=== PATIENT | female | born 1995 | race Caucasian/White ===

== ENCOUNTER 2024-01-13 13:06 | Emergency (ER) | payer OTHER, SELFPAY ==
[2024-01-13 13:08] VITALS: BP 120/76
--- NOTE | 2024-01-13 14:25 | ED.GENMED ---
History of Present Illness
General
Chief Complaint: Vaginal Bleeding
Source: patient
Exam Limitations: none
Time Seen by Provider: 01/13/24 13:47
Nursing documentation reviewed up to this point in time: agreed with
Travel History
Have you had any contact with someone who has COVID-19?: No
Do you have any symptoms of coronavirus? Fever > 100 degrees, chills, cough, shortness of breath, sore throat, loss of taste or smell, muscle aches, or headache?: No
History of Present Illness
History of Present Illness:
Patient is a 28-year-old female who presents to the ER for evaluation. She reports she has a history of abnormal periods her last. Her last normal menses was August 05 however on December 31 that she noticed some blood on the toilet paper when she
wiped. She has not had normal vaginal bleeding. She reports when she wears a tampon there is no blood in the tampon and when she wears a pad there is no blood on the pad but when she wipes she does notice some blood on the toilet paper. Today
however she started with pain in her right lower quadrant which radiates to her right back.
Review of Systems
Review of Systems
Allergies reviewed?: Yes
All Other Systems: ROS reviewed and negative except as documented in HPI and ROS
Constitutional: Reports no symptoms; Denies fever, fatigue or chills
EENT: Reports no symptoms
Respiratory: Reports no symptoms
Cardiac: Reports no symptoms
ABD/GI: Reports abdominal pain and nausea; Denies vomiting or diarrhea
: Reports other (blood only toilet paper with wiping )
Musculoskeletal: Reports back pain (pain rlq radiates to back )
Skin: Reports no symptoms
Hematologic/Lymphatic: Reports no symptoms
Psychiatric: Reports no symptoms
Phy Exam
General Physical Exam
General Presentation: no apparent distress
General age: appears stated age
General Skin: warm and dry
General Habitus: normal
General Mental: alert
General Hydration: appears well hydrated
Gastrointestinal Exam
Gastrointestinal Exam: non tender and soft
Neurological Exam
Neurological Exam: alert and oriented x3
[place] Coma Scale
Eye Opening: Spontaneous
Verbal Response: Oriented
Motor Response: Obeys Commands
GCS Total Score: 15
Musculoskeletal Exam
Musculoskeletal Exam: full ROM
Skin Exam
Skin Exam: normal color and warm/dry
Psychiatric Exam
Psychiatric Exam: normal mood/affect
Course
Orders/Labs/Results
Orders:
Orders
01/13/24 14:11
IV Insert/Care/Rem.- Treatment PRN
01/13/24 14:14
Test Result ONCE
01/13/24 14:28
US Pelvis W Transvag Combined Urgent
Reason For Exam: rlq pain and bleeding
01/13/24 15:00
CT Abd/Pel (IV only)-DH only Urgent
Comment:
Reason For Exam: rlq pain
0.9% Sodium Chloride 1000 ml [Nss] 1,000 ml IV BOLUS
01/13/24 15:01
Ketorolac [Toradol] 15 mg IV NOW STA
Ondansetron Injectable [Zofran] 4 mg IV NOW STA
01/13/24 15:03
Complete Blood Count/With Diff Urgent
Comprehensive Metabolic Panel Urgent
HCG, Serum Qualitative Screen Urgent
01/13/24 19:22
UA Reflex to Culture [Urinalysis Reflex To Culture] Urgent
Date Specimen was Collected: 01/13/24
Time Specimen was Collected: 19:21
Urine Microscopic Reflex Cult Urgent
Abnormal Lab Results
01/13/24 01/13/24
15:03 19:22
Hgb 10.2 L g/dL
(12.0-16.0)
Hct 32.4 L %
(37.0-47.0)
MCV 75.5 L fL
(81.0-99.0)
MCH 23.8 L pg
(27.0-31.0)
MCHC 31.5 L g/dL
(33.0-37.0)
RDW 15.9 H %
(11.5-14.5)
Creatinine 0.5 L mg/dL
(0.6-1.0)
Ur Occult Blood Reflex 3+ A
(Negative)
Urine RBC 11-15 A /HPF
(0-2)
01/13/24 15:03
01/13/24 15:03
Vital Signs
Initial and Last Documented VS:
Initial Vital Signs
Temp Pulse Resp BP Pulse Ox
97.9 F 62 18 120/76 100
01/13/24 13:08 01/13/24 13:08 01/13/24 13:08 01/13/24 13:08 01/13/24 13:08
Last Documented Vital Signs
Temp Pulse Resp BP Pulse Ox
97.9 F 63 18 103/61 99
01/13/24 13:08 01/13/24 17:30 01/13/24 17:30 01/13/24 17:27 01/13/24 17:28
MDM/Problems Addressed
Differential Diagnosis Includes:
Not limited to ovarian torsion ovarian cyst appendicitis renal colic pyelonephritis
MDM/Problems Addressed:
Patient is a 28-year-old female who presented to the ER for evaluation. Initially patient complains of a history of irregular periods and reported vaginal bleeding since December 31 however when asked she reports there is no blood in her pad and no
blood on her tampon she only visualizes blood on the toilet paper when she wipes. Today however she started with pain in the right lower quadrant which radiates to her back. She is well appearing. denies any vaginal bleeding presently.
As documented she has a history of irregular periods and her last normal period in July. She is a no miscarriages no abortions.
On exam she is tender in the right lower quad. Differential diagnoses include as documented ovarian torsion versus cyst appendicitis as patient is tender on exam versus renal colic, pyelo.
1650: unremarkable labs , mildly anemic. CAT scan shows unremarkable appendix small nonobstructing left renal calculus limited evaluation intestinal tract without oral contrast. CAT scan mentions a few right lower quadrant mesenteric lymph nodes
cannot exclude mesenteric adenitis
Ultrasound shows IUD in normal position in the endometrial canal manage small similar size peripheral position follicles of both ovaries suggestive of polycystic very disease. Patient no acute distress
Will check urine and if negative plan for discharge with gynecology follow-up. I did review findings on ultrasound(will need gynecology follow-up for possible polycystic ovarian disease). I did go over the possibility of mesenteric adenitis with
patient and discussed supportive care Motrin Tylenol.
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
*Critical Care Note
Total Time (30-74mins, 75-104mins- exclusive of procedures): Not Applicable
ED Attending Note
-
Portions of this chart may have been created with voice recognition software.� Occasional wrong word or��sound alike� substitutions may have occurred due to the inherent limitations of voice recognition software.
Discharge Plan
Departure
Patient Disposition: Home (Routine Discharge)
Date of Disposition: 01/13/24
Time of Disposition: 19:58
Patient with high blood pressure during this ER visit?: No
Condition: Fair
Covid-19: Not Applicable
Discharge Problem:
lower abdominal pain
Instructions: Abdominal Pain, Adult ED
Referrals:
Naga Finley MD [Family Provider] -
Activity Restrictions/Additional Instructions:
You may alternate between Tylenol and ibuprofen for discomfort. Follow-up with your mutual fund manager in the next several days for reevaluation of your symptoms and reevaluation of ultrasound findings including possible polycystic ovarian disease. Also
as discussed it is possibility that there is mesenteric adenitis which is inflamed lymph nodes. This does not need any treatment except for Motrin and Tylenol as needed. This is self-limiting and will go away on its own. Follow-up with your
family doctor for further reevaluation return if any worsening of symptoms.
Interventions
Interventions:
*Risk Screen - Suicide Last Done: 01/13/24 14:56
*General Assessment Last Done: 01/13/24 14:56
*Neglect/Abuse Screening Last Done: 01/13/24 14:56
ED- Fall Risk Assessment Last Done: 01/13/24 16:26
*ED COVID-19 Vaccine History Last Done: 01/13/24 14:56
*Nursing Disposition Last Done: 01/13/24 20:14
ED-Female Genitourinary Assessment Last Done: 01/13/24 16:25
Discharge Date and Time
Discharge Date/Time: 01/13/24 20:14
[2024-01-13 14:54] VITALS: BMI 30.2
[2024-01-13 14:55] VITALS: BP 127/86
[2024-01-13 14:56] VITALS: BP 127/86
[2024-01-13] MEDS: NSS 1000 IV (15:08)
[2024-01-13] MEDS: TORADOL 15 MG IV (15:08)
[2024-01-13] MEDS: ZOFRAN 4 MG IV (15:08)
[2024-01-13 15:11] LABS: % Basophils 0.5 % (0-2); % Eosinophils 2.3 % (0-6); % Immature Granulocytes 0.2 % (0-0.5); % Monocytes 8.8 % (1.7-9.3); % Neutrophils 48.2 % (42.2-75.2); Absolute Eosinophils 0.1 10^3/uL (0-0.7); Absolute Lymphocytes 2.2 10^3/uL (1.2-3.4); Absolute Monocytes 0.5 10^3/uL (0.1-0.6); Absolute Neutrophils 2.7 10^3/uL (1.4-6.5); Hematocrit 32.4 % (37.0-47.0); Hemoglobin 10.2 g/dL (12.0-16.0); Mean Corp Hgb Conc. 31.5 g/dL (33.0-37.0); Mean Corpuscular Hgb 23.8 pg (27.0-31.0); Mean Corpuscular Volume 75.5 fL (81.0-99.0); Mean Platelet Volume 9.5 fL (7.4-10.4); Nucleated Red Blood Cells % 0 %; Platelet Count 293 10^3/uL (130-400); Red Blood Cell Count 4.29 10^6/uL (4.20-5.40); Red Cell Dist. Width 15.9 % (11.5-14.5); White Blood Cell Count 5.6 10^3/uL (4.8-10.8)
[2024-01-13 15:21] LABS: HCG, Serum Qualitative Screen Negative
[2024-01-13 15:25] LABS: ALT (SGPT) 29 U/L (0-35); AST (SGOT) 29 U/L (14-36); Albumin 4.5 g/dl (3.5-5.0); Alkaline Phosphatase 68 U/L (38-126); Blood Urea Nitrogen 14 mg/dl (7-17); Calcium 9.6 mg/dl (8.4-10.2); Carbon Dioxide 27 mmol/L (22-30); Chloride 102 mmol/L (98-107); Estimated Creatinine Clearance > 125 ml/min; Glucose 94 mg/dl (70-99); Potassium 4.2 mmol/L (3.5-5.1); Sodium 137 mmol/L (135-145); Total Bilirubin 0.3 mg/dl (0.2-1.3); Total Protein 7.7 g/dl (6.3-8.2); eGFR > 60.00
[2024-01-13 17:27] VITALS: BP 103/61
[2024-01-13 19:33] LABS: Urine Albumin Negative (Neg - Trace); Urine Bilirubin Negative (Negative); Urine Character Clear (Clear); Urine Color Yellow; Urine Glucose Negative (Negative); Urine Ketone Negative (Negative); Urine Leukocyte Negative (Negative); Urine Nitrite Negative (Negative); Urine Occult Blood 3+ (Negative); Urine Urobilinogen Negative (Neg - 1+)
[2024-01-13 19:46] LABS: Urine White Cell None Seen /HPF (0-5)
== END 2024-01-13 20:14 | disposition home or self-care (01) ==
LOC: EMR 13:06
PROVIDERS: Nurse Practitioner; EMERGENCY PHYSICIAN Emergency Medicine; FAMILY PHYSICIAN Internal Medicine
DX: R10.30 Lower abdominal pain, unspecified (principal)
CPT/HCPCS: 99284; 74177; 76830; 76856; 80053; 81003; 81015; 84703; 85025; Q9967

== ENCOUNTER 2024-02-24 21:33 | Emergency (ER) | payer OTHER, SELFPAY ==
[2024-02-24 21:42] VITALS: BP 134/87
[2024-02-24 22:14] LABS: % Basophils 0.3 % (0-2); % Eosinophils 1.9 % (0-6); % Immature Granulocytes 0.4 % (0-0.5); % Lymphocytes 18.7 % (20.5-51.1); % Monocytes 5.6 % (1.7-9.3); % Neutrophils 73.1 % (42.2-75.2); Absolute Eosinophils 0.2 10^3/uL (0-0.7); Absolute Immature Granulocytes 0.1 10^3/uL (0-0.05); Absolute Lymphocytes 2.3 10^3/uL (1.2-3.4); Absolute Monocytes 0.7 10^3/uL (0.1-0.6); Absolute Neutrophils 9.1 10^3/uL (1.4-6.5); Hematocrit 30.5 % (37.0-47.0); Mean Corp Hgb Conc. 32.8 g/dL (33.0-37.0); Mean Corpuscular Volume 73.3 fL (81.0-99.0); Mean Platelet Volume 9.3 fL (7.4-10.4); Nucleated Red Blood Cells % 0 %; Platelet Count 352 10^3/uL (130-400); Red Blood Cell Count 4.16 10^6/uL (4.20-5.40); Red Cell Dist. Width 15.7 % (11.5-14.5); White Blood Cell Count 12.5 10^3/uL (4.8-10.8)
--- NOTE | 2024-02-24 22:17 | ED.GENMED ---
History of Present Illness
<KAROLYN Reis - Last Filed: 02/25/24 04:55>
General
Chief Complaint: Flank Pain
Source: patient
Exam Limitations: none
Time Seen by Provider: 02/24/24 22:03
Nursing documentation reviewed up to this point in time: agreed with
Travel History
Have you had any contact with someone who has COVID-19?: No
Do you have any symptoms of coronavirus? Fever > 100 degrees, chills, cough, shortness of breath, sore throat, loss of taste or smell, muscle aches, or headache?: Yes
Symptoms:: sore throat
History of Present Illness
History of Present Illness:
This is a 28 year old female with no significant past medical history who presents to the ER w/ c/o right flank pain x1 day. Patient reports the pain started in the early afternoon and worsened in the evening. She states the pain radiates from her
right flank to RLQ. She admits to nausea but no vomiting or diarrhea. She also admits to dysuria, but no urgency/frequency or odor. She also states she has a sore throat that started today. She reports subjective fever and chills. She has taken 3
Tylenol tablets in total in today that has provided mild relief. She also states she has a posterior headache and photophobia. She denies cough, rhinorrhea, CP, or SOB. She denies medical history of UTI, pyelonephritis, or nephrolithiasis.
Review of Systems
<KAROLYN Reis - Last Filed: 02/25/24 04:55>
Review of Systems
Allergies reviewed?: Yes
All Other Systems: Not applicable
Constitutional: Reports fever and chills
EENT: Reports sore throat
Respiratory: Reports no symptoms
Cardiac: Reports no symptoms
ABD/GI: Reports abdominal pain and nausea
: Reports dysuria and flank pain (Right sided)
Musculoskeletal: Reports no symptoms
Skin: Reports no symptoms
Neurological: Reports headache (Associate with photophobia)
Endocrine: Reports no symptoms
Hematologic/Lymphatic: Reports no symptoms
Psychiatric: Reports no symptoms
Phy Exam
<KAROLYN Reis - Last Filed: 02/25/24 04:55>
General Physical Exam
General Presentation: well appearing and mild distress
General Skin: warm and dry
General Habitus: normal
General Mental: alert
General Hydration: appears well hydrated
ENT Exam
ENT Exam: EOMI, pharynx normal, neck supple and normocephalic
Eye Exam
Eye Exam: PERRL, cornea clear and conjunctiva normal
Cardiovascular Exam
Cardiovascular Exam: regular rate/rhythm, no edema, no murmur and normal peripheral pulses
Pulmonary Exam
Pulmonary Exam: lungs clear, no respiratory distress, no rales, no crackles, no rhonchi, no stridor, no wheezing and no cough
Gastrointestinal Exam
Gastrointestinal Exam: normal bowel sounds, non tender, soft, no organomegaly, no pulsatile mass, non distended and cva tenderness (Bilateral)
Palpation: right lower quadrant: Moderate tenderness
Neurological Exam
Neurological Exam: alert, oriented x3, no motor deficits and speech normal
Musculoskeletal Exam
Musculoskeletal Exam: full ROM and no edema
Skin Exam
Skin Exam: normal color, warm/dry, no rash and no petechia
Psychiatric Exam
Psychiatric Exam: normal mood/affect
Course
<KAROLYN Reis - Last Filed: 02/25/24 04:55>
Orders/Labs/Results
Orders:
Orders
02/24/24 22:03
Urinalysis Reflex To Culture Urgent
Date Specimen was Collected: 02/25/24
Time Specimen was Collected: 00:43
02/24/24 22:09
Comprehensive Metabolic Panel Urgent
HCG, Serum Qualitative Screen Urgent
Comment: ADDED
02/24/24 22:10
Complete Blood Count/With Diff Urgent
02/24/24 22:21
Rapid Strep Group A Urgent
ELE Source: Throat/Pharynx
Specimen Description:
Date Specimen was Collected: 02/24/24
Time Specimen was Collected: 22:16
02/24/24 22:53
0.9% Sodium Chloride 1000 ml [Nss] 1,000 ml IV BOLUS
Acetaminophen [Tylenol] 1,000 mg PO NOW STA
02/24/24 23:39
HYDROmorphone [Dilaudid] 0.5 mg IV NOW STA
Ondansetron Injectable [Zofran] 4 mg IV NOW STA
02/25/24 00:38
0.9% Sodium Chloride 1000 ml [Nss] 1,000 ml IV BOLUS
02/25/24 01:27
Lactic Acid Q4H
Comment: CANCEL 2nd LACTIC ACID IF 1st LACTIC ACID IS LESS THAN 2
Procalcitonin Urgent
PCT Algorithmm Indication: Sepsis
Blood Culture Q30M
ELE Source: Blood/Venous
Specimen Description:
Blood Culture Q30M
ELE Source: Blood/Venous
Specimen Description:
Influenza A+B Rapid Molecular Urgent
ELE Source: Nasal Swab
Specimen Description:
02/25/24 02:19
CT Abd/pelvis W Iv Cont Urgent
Comment:
Reason For Exam: flank and back pain, fever'
02/25/24 02:37
Add On- LAB Urgent
Tests Added?: serum hcg
02/25/24 04:36
Amoxicillin 875 mg/Clav 125 mg [Augmentin 875 mg/125 mg] 1 tablet .ROUTE .STK-MED ONE
Ketorolac [Toradol] 15 mg .ROUTE .STK-MED ONE
02/25/24 04:41
Amoxicillin 875 mg/Clav 125 mg [Augmentin 875 mg/125 mg] 1 tablet PO NOW STA
02/25/24 04:44
Amoxicillin 875 mg/Clav 125 mg [Augmentin 875 mg/125 mg] 1 tablet PO NOW STA
02/25/24 04:50
Ketorolac [Toradol] 15 mg IV NOW STA
02/25/24 04:53
Ondansetron Injectable [Zofran] 4 mg .ROUTE .K-MED ONE
Abnormal Lab Results
02/24/24 02/24/24
22:09 22:10
WBC 12.5 H 10^3/uL
(4.8-10.8)
RBC 4.16 L 10^6/uL
(4.20-5.40)
Hgb 10.0 L g/dL
(12.0-16.0)
Hct 30.5 L %
(37.0-47.0)
MCV 73.3 L fL
(81.0-99.0)
MCH 24.0 L pg
(27.0-31.0)
MCHC 32.8 L g/dL
(33.0-37.0)
RDW 15.7 H %
(11.5-14.5)
Abs Immat Gran (auto) 0.1 H 10^3/uL
(0-0.05)
Absolute Neuts (auto) 9.1 H 10^3/uL
(1.4-6.5)
Absolute Monos (auto) 0.7 H 10^3/uL
(0.1-0.6)
Lymphocytes % 18.7 L %
(20.5-51.1)
Potassium 3.4 L mmol/L
(3.5-5.1)
Chloride 108 H mmol/L
(98-107)
Creatinine 0.4 L mg/dL
(0.6-1.0)
02/24/24 22:10
02/24/24 22:09
Vital Signs
Initial and Last Documented VS:
Initial Vital Signs
Temp Pulse Resp BP Pulse Ox
98.6 F 86 20 134/87 100
02/24/24 21:42 02/24/24 21:42 02/24/24 21:42 02/24/24 21:42 02/24/24 21:42
Last Documented Vital Signs
Temp Pulse Resp BP Pulse Ox
99.6 F 88 22 111/84 96
02/25/24 00:54 02/25/24 04:30 02/25/24 04:30 02/25/24 04:00 02/25/24 04:30
<Quincy Gonzalez, - Last Filed: 02/25/24 04:24>
Orders/Labs/Results
Orders:
Orders
02/24/24 22:03
Urinalysis Reflex To Culture Urgent
Date Specimen was Collected: 02/25/24
Time Specimen was Collected: 00:43
02/24/24 22:09
Comprehensive Metabolic Panel Urgent
HCG, Serum Qualitative Screen Urgent
Comment: ADDED
02/24/24 22:10
Complete Blood Count/With Diff Urgent
02/24/24 22:21
Rapid Strep Group A Urgent
ELE Source: Throat/Pharynx
Specimen Description:
Date Specimen was Collected: 02/24/24
Time Specimen was Collected: 22:16
02/24/24 22:53
0.9% Sodium Chloride 1000 ml [Nss] 1,000 ml IV BOLUS
Acetaminophen [Tylenol] 1,000 mg PO NOW STA
02/24/24 23:39
HYDROmorphone [Dilaudid] 0.5 mg IV NOW STA
Ondansetron Injectable [Zofran] 4 mg IV NOW STA
02/25/24 00:38
0.9% Sodium Chloride 1000 ml [Nss] 1,000 ml IV BOLUS
02/25/24 01:27
Lactic Acid Q4H
Comment: CANCEL 2nd LACTIC ACID IF 1st LACTIC ACID IS LESS THAN 2
Procalcitonin Urgent
PCT Algorithmm Indication: Sepsis
Blood Culture Q30M
ELE Source: Blood/Venous
Specimen Description:
Blood Culture Q30M
ELE Source: Blood/Venous
Specimen Description:
Influenza A+B Rapid Molecular Urgent
ELE Source: Nasal Swab
Specimen Description:
02/25/24 02:19
CT Abd/pelvis W Iv Cont Urgent
Comment:
Reason For Exam: flank and back pain, fever'
02/25/24 02:37
Add On- LAB Urgent
Tests Added?: serum hcg
02/25/24 04:36
Amoxicillin 875 mg/Clav 125 mg [Augmentin 875 mg/125 mg] 1 tablet .ROUTE .STK-MED ONE
Ketorolac [Toradol] 15 mg .ROUTE .STK-MED ONE
02/25/24 04:41
Amoxicillin 875 mg/Clav 125 mg [Augmentin 875 mg/125 mg] 1 tablet PO NOW STA
02/25/24 04:44
Amoxicillin 875 mg/Clav 125 mg [Augmentin 875 mg/125 mg] 1 tablet PO NOW STA
02/25/24 04:50
Ketorolac [Toradol] 15 mg IV NOW STA
02/25/24 04:53
Ondansetron Injectable [Zofran] 4 mg .ROUTE .STK-MED ONE
Abnormal Lab Results
02/24/24 02/24/24
22:09 22:10
WBC 12.5 H 10^3/uL
(4.8-10.8)
RBC 4.16 L 10^6/uL
(4.20-5.40)
Hgb 10.0 L g/dL
(12.0-16.0)
Hct 30.5 L %
(37.0-47.0)
MCV 73.3 L fL
(81.0-99.0)
MCH 24.0 L pg
(27.0-31.0)
MCHC 32.8 L g/dL
(33.0-37.0)
RDW 15.7 H %
(11.5-14.5)
Abs Immat Gran (auto) 0.1 H 10^3/uL
(0-0.05)
Absolute Neuts (auto) 9.1 H 10^3/uL
(1.4-6.5)
Absolute Monos (auto) 0.7 H 10^3/uL
(0.1-0.6)
Lymphocytes % 18.7 L %
(20.5-51.1)
Potassium 3.4 L mmol/L
(3.5-5.1)
Chloride 108 H mmol/L
(98-107)
Creatinine 0.4 L mg/dL
(0.6-1.0)
02/24/24 22:10
02/24/24 22:09
Vital Signs
Initial and Last Documented VS:
Initial Vital Signs
Temp Pulse Resp BP Pulse Ox
98.6 F 86 20 134/87 100
02/24/24 21:42 02/24/24 21:42 02/24/24 21:42 02/24/24 21:42 02/24/24 21:42
Last Documented Vital Signs
Temp Pulse Resp BP Pulse Ox
99.6 F 88 22 111/84 96
02/25/24 00:54 02/25/24 04:30 02/25/24 04:30 02/25/24 04:00 02/25/24 04:30
[place];KAROLYN Reis - Last Filed: 02/25/24 04:55>
MDM/Problems Addressed
Differential Diagnosis Includes:
UTI, Pyelonephritis, Nephrolithiasis, Appendicitis, Pancreatitis, Strep pharyngitis
UTI considered due to dysuria, however she also has CVA tenderness and a fever of 99.6 degree F which makes it suspicious for pyelonephritis. Nephrolithiasis also considered with flank pain. Abd/pelvis CT scan on 01/07/23 seen small nonobstructing
left renal calculus. Appendicitis and pancreatitis considered due to abdominal pain and fever but less likely. Strep pharyngitis considered due to sore throat, no cough, and fever, however less likely since no exudates seen on ENT exam. Strep Rapid
screening ordered for further evaluation. Will also obtain UA to rule out UTI/pyelonephritis. Plan to repeat abd/pelvis CT to rule out kidney stone, appendicitis, and pancreatitis.
<KAROLYN Reis - Last Filed: 02/25/24 04:55>
*Critical Care Note
Total Time (30-74mins, 75-104mins- exclusive of procedures): Not Applicable
<Quincy Gonzalez DO - Last Filed: 02/25/24 04:24>
Update Note
Update Note:
Comparison January 13, 2024
CT abdomen pelvis with IV contrast
IMPRESSION:
No acute intra-abdominal pathology. Nonobstructing left lower pole renal calculus without hydronephrosis. No pyelonephritis. No bowel obstruction or inflammation. No free air or free fluid.
Bilateral breast implants. Bilateral dependent atelectasis. Gallbladder and pancreas are unremarkable. He is noted.
ED Attending Note
<KAROLYN Reis - Last Filed: 02/25/24 04:55>
-
Portions of this chart may have been created with voice recognition software.� Occasional wrong word or��sound alike� substitutions may have occurred due to the inherent limitations of voice recognition software.
<Quincy Gonzalez DO - Last Filed: 02/25/24 04:24>
ED Attending Note
Patient seen and examined by attending physician: Yes
I performed the substantive portion of visit, reviewed & personally made and approve the management plan that is documented in note by myself or MADDY.: Yes
ED Attending Note:
This a pleasant 28-year-old female that presents with right flank pain that has been present for the last day. She states that it has been progressively worsening. She she does have nausea when the pain is at its worst but denies diarrhea or chest
pain. She does have dysuria. Patient developed a sore throat today. She took Tylenol today around 6 PM which provided her some relief. She does report having a typical headache
Vital signs are stable. Patient not hypoxic
Nursing note reviewed. I agree with nursing documentation up to this point in time.
Home Meds and allergies reviewed.
NUMBER AND COMPLEXITY OF PROBLEMS ADDRESSED AT THE ENCOUNTER
� Chronic conditions affecting care: None
� Acute Exacerbation and/or Progression of Chronic Illness: This is an acute problem
� Differential Diagnosis includes: Strep throat, kidney stone, UTI, pyelonephritis
AMOUNT AND/OR COMPLEXITY OF DATA TO BE REVIEWED AND ANALYZED
I performed an independent evaluation of the following and my interpretation is:
EKG:
CT:
X-rays:
Ultrasound:
Laboratory Studies:
Other:
Review of other/old records:
Clinical information was obtained by an independent historian:
Prescriptions/Medications Considered but not given:
Further testing considered but not performed:
RISK OF COMPLICATIONS AND/OR MORBIDITY OR MORTALITY OF PATIENT MANAGEMENT
Social determinants of health affecting care: Good Social Support
Discussion with other providers:
Escalation of care including admission/observation vs risk of discharge considered:
CRITICAL CARE NOTE:
Total Time (exclusive of procedures):
Update:
Discharge Plan
Departure
Patient Disposition: Home (Routine Discharge)
Date of Disposition: 02/25/24
Time of Disposition: 04:20
Patient with high blood pressure during this ER visit?: No
Condition: Good
Discharge Problem:
Acute streptococcal pharyngitis
Instructions: Strep Throat ED
Prescriptions:
New
amoxicillin-pot clavulanate 875-125 mg tablet
1 tab PO BID Qty: 20 0RF
Referrals:
[facility] [Outside]
[facility] [Outside]
UNKNOWN - PT DOES,NOT KNOW [Family Provider] -
Activity Restrictions/Additional Instructions:
It was a pleasure meeting you and taking part in your care. We hope for your continued healing and wellness.
Please read discharge instructions in their entirety. However, they are for general education and may not describe your exact diagnosis at discharge. Information on your ER visit and medical conditions were discussed with you along with appropriate
follow up information...
If indicated, please take your medications as instructed and indicated on discharge paperwork.
Please schedule a follow up appointment as directed. Call to schedule an appointment
Please return to the emergency department with ANY change in, persisting, or worsening of symptoms. If any of your symptoms do not improve, or persist, or become more severe within 6-12 hours, please return to the emergency department for further
care.
Please return to the emergency department if you develop a headache, neck pain/stiffness, fever greater than 100.4F, chest pain, shortness of breath, persistent nausea, vomiting, slurred speech, difficulty walking, numbness/tingling, weakness, signs
of infection or any other symptoms that are worrisome to you.
If you have any questions or concerns please do not hesitate to call the Hospital at
Interventions
Interventions:
*Risk Screen - Suicide Last Done: 02/24/24 21:42
*General Assessment Last Done: 02/24/24 21:42
*Neglect/Abuse Screening Last Done: 02/24/24 21:42
ED- Fall Risk Assessment Last Done: 02/24/24 21:42
*ED COVID-19 Vaccine History Last Done: 02/24/24 21:42
DB-Nincqh-Dvltmqqiof Assessment Last Done: 02/25/24 03:10
ED-Female Genitourinary Assessment Last Done: 02/24/24 22:24
ED- Pulmonary Assessment Last Done: 02/25/24 03:10
Discharge Date and Time
Print Language: IRISH
[2024-02-24 22:19] VITALS: BP 151/86
[2024-02-24 22:49] LABS: ALT (SGPT) 26 U/L (0-35); AST (SGOT) 30 U/L (14-36); Albumin 4.2 g/dl (3.5-5.0); Alkaline Phosphatase 76 U/L (38-126); Blood Urea Nitrogen 10 mg/dl (7-17); Calcium 8.7 mg/dl (8.4-10.2); Carbon Dioxide 22 mmol/L (22-30); Chloride 108 mmol/L (98-107); Glucose 80 mg/dl (70-99); Potassium 3.4 mmol/L (3.5-5.1); Sodium 136 mmol/L (135-145); Total Bilirubin 0.2 mg/dl (0.2-1.3); Total Protein 7.3 g/dl (6.3-8.2); eGFR > 60.00
[2024-02-24 23:00] VITALS: BP 161/98
[2024-02-24] MEDS: NSS 1000 IV (23:07)
[2024-02-24] MEDS: TYLENOL 1000 MG PO (23:07)
[2024-02-24] MEDS: DILAUDID 0.5 MG IV (23:42)
[2024-02-24] MEDS: ZOFRAN 4 MG IV (23:42)
[2024-02-25] VITALS (8 sets, daily range): BP systolic 107–119; BP diastolic 61–84
[2024-02-25] MEDS: NSS 1000 IV (00:48)
[2024-02-25 00:53] LABS: Urine Albumin Negative (Neg - Trace); Urine Bilirubin Negative (Negative); Urine Character Clear (Clear); Urine Color Yellow; Urine Glucose Negative (Negative); Urine Ketone Negative (Negative); Urine Leukocyte Negative (Negative); Urine Nitrite Negative (Negative); Urine Occult Blood Negative (Negative); Urine Urobilinogen Negative (Neg - 1+)
[2024-02-25 01:51] LABS: Lactic Acid 0.8 mmol/L (0.7-2.0)
[2024-02-25 02:09] LABS: Procalcitonin < 0.05 ng/ml (0.0-0.25)
[2024-02-25 03:09] LABS: HCG, Serum Qualitative Screen Negative
[2024-02-25] MEDS: TORADOL 15 MG IV (04:51)
[2024-02-25] MEDS: AUGMENTIN 875 MG/125 MG 1 TABLET PO (04:51)
[2024-02-25] MEDS: ZOFRAN 4 MG IV (04:57)
--- NOTE | 2024-02-25 05:36 | ED.GENMED ---
History of Present Illness
General
Chief Complaint: Flank Pain
Time Seen by Provider: 02/24/24 22:03
Travel History
Have you had any contact with someone who has COVID-19?: No
Do you have any symptoms of coronavirus? Fever > 100 degrees, chills, cough, shortness of breath, sore throat, loss of taste or smell, muscle aches, or headache?: Yes
Symptoms:: sore throat
Course
Orders/Labs/Results
Orders:
Orders
02/24/24 22:03
Urinalysis Reflex To Culture Urgent
Date Specimen was Collected: 02/25/24
Time Specimen was Collected: 00:43
02/24/24 22:09
Comprehensive Metabolic Panel Urgent
HCG, Serum Qualitative Screen Urgent
Comment: ADDED
02/24/24 22:10
Complete Blood Count/With Diff Urgent
02/24/24 22:21
Rapid Strep Group A Urgent
ELE Source: Throat/Pharynx
Specimen Description:
Date Specimen was Collected: 02/24/24
Time Specimen was Collected: 22:16
02/24/24 22:53
0.9% Sodium Chloride 1000 ml [Nss] 1,000 ml IV BOLUS
Acetaminophen [Tylenol] 1,000 mg PO NOW STA
02/24/24 23:39
HYDROmorphone [Dilaudid] 0.5 mg IV NOW STA
Ondansetron Injectable [Zofran] 4 mg IV NOW STA
02/25/24 00:38
0.9% Sodium Chloride 1000 ml [Nss] 1,000 ml IV BOLUS
02/25/24 01:27
Lactic Acid Q4H
Comment: CANCEL 2nd LACTIC ACID IF 1st LACTIC ACID IS LESS THAN 2
Procalcitonin Urgent
PCT Algorithmm Indication: Sepsis
Blood Culture Q30M
ELE Source: Blood/Venous
Specimen Description:
Blood Culture Q30M
ELE Source: Blood/Venous
Specimen Description:
Influenza A+B Rapid Molecular Urgent
ELE Source: Nasal Swab
Specimen Description:
02/25/24 02:19
CT Abd/pelvis W Iv Cont Urgent
Comment:
Reason For Exam: flank and back pain, fever'
02/25/24 02:37
Add On- LAB Urgent
Tests Added?: serum hcg
02/25/24 04:36
Amoxicillin 875 mg/Clav 125 mg [Augmentin 875 mg/125 mg] 1 tablet .ROUTE .STK-MED ONE
Ketorolac [Toradol] 15 mg .ROUTE .STK-MED ONE
02/25/24 04:41
Amoxicillin 875 mg/Clav 125 mg [Augmentin 875 mg/125 mg] 1 tablet PO NOW STA
02/25/24 04:44
Amoxicillin 875 mg/Clav 125 mg [Augmentin 875 mg/125 mg] 1 tablet PO NOW STA
02/25/24 04:50
Ketorolac [Toradol] 15 mg IV NOW STA
02/25/24 04:53
Ondansetron Injectable [Zofran] 4 mg .ROUTE .STK-MED ONE
02/25/24 04:57
Ondansetron Injectable [Zofran] 4 mg IV NOW STA
Abnormal Lab Results
02/24/24 02/24/24
22:09 22:10
WBC 12.5 H 10^3/uL
(4.8-10.8)
RBC 4.16 L 10^6/uL
(4.20-5.40)
Hgb 10.0 L g/dL
(12.0-16.0)
Hct 30.5 L %
(37.0-47.0)
MCV 73.3 L fL
(81.0-99.0)
MCH 24.0 L pg
(27.0-31.0)
MCHC 32.8 L g/dL
(33.0-37.0)
RDW 15.7 H %
(11.5-14.5)
Abs Immat Gran (auto) 0.1 H 10^3/uL
(0-0.05)
Absolute Neuts (auto) 9.1 H 10^3/uL
(1.4-6.5)
Absolute Monos (auto) 0.7 H 10^3/uL
(0.1-0.6)
Lymphocytes % 18.7 L %
(20.5-51.1)
Potassium 3.4 L mmol/L
(3.5-5.1)
Chloride 108 H mmol/L
(98-107)
Creatinine 0.4 L mg/dL
(0.6-1.0)
02/24/24 22:10
02/24/24 22:09
Vital Signs
Initial and Last Documented VS:
Initial Vital Signs
Temp Pulse Resp BP Pulse Ox
98.6 F 86 20 134/87 100
02/24/24 21:42 02/24/24 21:42 02/24/24 21:42 02/24/24 21:42 02/24/24 21:42
Last Documented Vital Signs
Temp Pulse Resp BP Pulse Ox
100.4 F H 84 17 109/77 97
02/25/24 04:50 02/25/24 04:50 02/25/24 04:50 02/25/24 05:00 02/25/24 05:00
ED Attending Note
-
Portions of this chart may have been created with voice recognition software.� Occasional wrong word or��sound alike� substitutions may have occurred due to the inherent limitations of voice recognition software.
Discharge Plan
Departure
Patient Disposition: Home (Routine Discharge)
Date of Disposition: 02/25/24
Time of Disposition: 04:20
Patient with high blood pressure during this ER visit?: No
Condition: Good
Discharge Problem:
Acute streptococcal pharyngitis
Instructions: Strep Throat ED
Prescriptions:
New
amoxicillin-pot clavulanate 875-125 mg tablet
1 tab PO BID Qty: 20 0RF
ondansetron 4 mg tablet,disintegrating
4 mg PO TID PRN (Reason: nausea and vomiting) 5 Days Qty: 15 0RF
Referrals:
[facility] [Outside]
[facility] [Outside]
UNKNOWN - PT DOES,NOT KNOW [Family Provider] -
Activity Restrictions/Additional Instructions:
It was a pleasure meeting you and taking part in your care. We hope for your continued healing and wellness.
Please read discharge instructions in their entirety. However, they are for general education and may not describe your exact diagnosis at discharge. Information on your ER visit and medical conditions were discussed with you along with appropriate
follow up information...
If indicated, please take your medications as instructed and indicated on discharge paperwork.
Please schedule a follow up appointment as directed. Call to schedule an appointment
Please return to the emergency department with ANY change in, persisting, or worsening of symptoms. If any of your symptoms do not improve, or persist, or become more severe within 6-12 hours, please return to the emergency department for further
care.
Please return to the emergency department if you develop a headache, neck pain/stiffness, fever greater than 100.4F, chest pain, shortness of breath, persistent nausea, vomiting, slurred speech, difficulty walking, numbness/tingling, weakness, signs
of infection or any other symptoms that are worrisome to you.
If you have any questions or concerns please do not hesitate to call the Hospital at
Interventions
Interventions:
*Risk Screen - Suicide Last Done: 02/24/24 21:42
*General Assessment Last Done: 02/24/24 21:42
*Neglect/Abuse Screening Last Done: 02/24/24 21:42
ED- Fall Risk Assessment Last Done: 02/24/24 21:42
*ED COVID-19 Vaccine History Last Done: 02/24/24 21:42
GC-Csorkw-Qlrmhwjhgh Assessment Last Done: 02/25/24 03:10
ED-Female Genitourinary Assessment Last Done: 02/24/24 22:24
ED- Pulmonary Assessment Last Done: 02/25/24 03:10
Discharge Date and Time
Print Language: LUX[place]
== END 2024-02-25 05:30 | disposition home or self-care (01) ==
LOC: EMR 21:33
PROVIDERS: EMERGENCY PHYSICIAN Student in an Organized Health Care Education/Training Program
DX: J02.0 Streptococcal pharyngitis (principal); R10.9 Unspecified abdominal pain; Z98.82 Breast implant status
CPT/HCPCS: 99284; 96374 ×2; 96375 ×2; 96361 ×2; 74177; 80053; 81003; 83605; 84145; 84703; 85025; 87040; 87070; 87502; 87880; Q9967

== ENCOUNTER 2024-07-28 23:37 | Emergency (ER) | payer SELFPAY ==
[2024-07-28 23:37] VITALS: BMI 30.3
[2024-07-28 23:39] VITALS: BP 147/104
[2024-07-29] VITALS: BP 137/87
--- NOTE | 2024-07-29 00:14 | ED.GENMED ---
History of Present Illness
General
Chief Complaint: Headache
Source: patient
Time Seen by Provider: 07/28/24 23:50
History of Present Illness
History of Present Illness:
29-year-old female presents complaining of headache. Patient has a history of migraines. This is a typical migraine headache but her home medication has not helped. She takes rizatriptan. She also took Tylenol today. She has some nausea but has
not vomited. No focal weakness.
Phy Exam
Physical Exam
Physical Exam:
General: Awake, Alert, Oriented X3. No acute distress.
Vitals: unremarkable
Head: Atraumatic
Eyes: Pupils equal, EOMI
Neck: Trachea midline
Lungs: Clear and equal b/l
Heart: Regular rate, no murmurs
Neuro: Cranial nerves intact, muscle strength equal bilaterally
Skin: Warm, dry, no rash
Extremities: pulses equal b/l, no edema
Course
Orders/Labs/Results
Orders:
Orders
07/29/24 00:12
0.9% Sodium Chloride 1000 ml [Nss] 1,000 ml IV BOLUS
Diphenhydramine [Benadryl] 25 mg IV NOW STA
Ketorolac [Toradol] 15 mg IV NOW STA
Prochlorperazine [Compazine] 10 mg IV NOW STA
07/29/24 00:13
Test Result ONCE
07/29/24 00:26
Basic Metabolic Panel Urgent
Complete Blood Count/No Diff Urgent
HCG, Serum Qualitative Screen Urgent
Abnormal Lab Results
07/29/24
00:26
Hgb 11.7 L g/dL
(12.0-16.0)
Hct 34.6 L %
(37.0-47.0)
RDW 14.9 H %
(11.5-14.5)
Sodium 148 H mmol/L
(135-145)
07/29/24 00:26
07/29/24 00:26
Vital Signs
Initial and Last Documented VS:
Initial Vital Signs
Temp Pulse Resp BP Pulse Ox
98.5 F 104 20 147/104 100
07/28/24 23:39 07/28/24 23:39 07/28/24 23:39 07/28/24 23:39 07/28/24 23:39
Last Documented Vital Signs
Temp Pulse Resp BP Pulse Ox
98.5 F 104 20 119/82 100
07/28/24 23:39 07/28/24 23:39 07/28/24 23:39 07/29/24 02:00 07/29/24 02:00
MDM/Problems Addressed
Differential Diagnosis Includes:
Tension headache, migraine headache
MDM/Problems Addressed:
Patient presents exacerbation of her chronic migraines. She felt better after treatment. Able for discharge home
*Pulse Oximetry
Patient hypoxic: no
*Critical Care Note
Total Time (30-74mins, 75-104mins- exclusive of procedures): Not Applicable
ED Attending Note
-
Portions of this chart may have been created with voice recognition software.� Occasional wrong word or��sound alike� substitutions may have occurred due to the inherent limitations of voice recognition software.
Discharge Plan
Departure
Patient Disposition: Home (Routine Discharge)
Date of Disposition: 07/29/24
Time of Disposition: 01:21
Patient with high blood pressure during this ER visit?: Yes
Condition: Good
Discharge Problem:
Migraine
Instructions: Migraines (DC)
Prescriptions:
No Action
amoxicillin-pot clavulanate 875-125 mg tablet
1 tab PO BID Qty: 20 0RF
ondansetron 4 mg tablet,disintegrating
4 mg PO TID PRN (Reason: nausea and vomiting) 5 Days Qty: 15 0RF
Referrals:
John Boucher MD [Family Provider] -
Interventions
Interventions:
*Risk Screen - Suicide Last Done: 07/28/24 23:39
*General Assessment Last Done: 07/28/24 23:39
*ED COVID-19 Vaccine History Last Done: 07/28/24 23:59
*Nursing Disposition Last Done: 07/29/24 02:16
ED- Neurological Assessment Last Done: 07/28/24 23:59
Discharge Date and Time
Discharge Date/Time: 07/29/24 02:18
Print Language: SPANISH
[2024-07-29] MEDS: TORADOL 15 MG IV (00:28)
[2024-07-29] MEDS: COMPAZINE 10 MG IV (00:29)
[2024-07-29] MEDS: NSS 1000 IV (00:31)
[2024-07-29] MEDS: BENADRYL 25 MG IV (00:31)
[2024-07-29 00:50] LABS: Hematocrit 34.6 % (37.0-47.0); Hemoglobin 11.7 g/dL (12.0-16.0); Mean Corp Hgb Conc. 33.8 g/dL (33.0-37.0); Mean Corpuscular Hgb 27.4 pg (27.0-31.0); Mean Platelet Volume 9.8 fL (7.4-10.4); Platelet Count 336 10^3/uL (130-400); Red Blood Cell Count 4.27 10^6/uL (4.20-5.40); Red Cell Dist. Width 14.9 % (11.5-14.5); White Blood Cell Count 5.8 10^3/uL (4.8-10.8)
[2024-07-29 01:00] VITALS: BP 108/72
[2024-07-29 01:00] LABS: HCG, Serum Qualitative Screen Negative
[2024-07-29 01:05] LABS: Blood Urea Nitrogen 8 mg/dl (7-17); Calcium 9.8 mg/dl (8.4-10.2); Carbon Dioxide 22 mmol/L (22-30); Chloride 107 mmol/L (98-107); Estimated Creatinine Clearance > 125 ml/min; Glucose 87 mg/dl (70-99); Potassium 4.4 mmol/L (3.5-5.1); Sodium 148 mmol/L (135-145); eGFR > 60.00
[2024-07-29 02:00] VITALS: BP 119/82
== END 2024-07-29 02:18 | disposition home or self-care (01) ==
LOC: EMR 23:37
PROVIDERS: EMERGENCY PHYSICIAN Emergency Medicine; FAMILY PHYSICIAN Family Medicine
DX: G43.909 Migraine, unspecified, not intractable, without status migrainosus (principal); R03.0 Elevated blood-pressure reading, without diagnosis of hypertension
CPT/HCPCS: 99284; 96374; 96375 ×2; 96361; 80048; 84703; 85027

== ENCOUNTER 2024-08-02 06:32 | Emergency (ER) | payer SELFPAY ==
[2024-08-02 06:35] VITALS: BP 136/89
[2024-08-02] MEDS: NSS 1000 IV (07:35)
[2024-08-02] MEDS: TORADOL 15 MG IV (07:35)
[2024-08-02] MEDS: BENADRYL 25 MG IV (07:36)
[2024-08-02] MEDS: COMPAZINE 10 MG IV (07:36)
[2024-08-02 07:45] LABS: % Basophils 0.4 % (0-2); % Eosinophils 0.2 % (0-6); % Immature Granulocytes 0.4 % (0-0.5); % Lymphocytes 18.5 % (20.5-51.1); % Monocytes 4.2 % (1.7-9.3); % Neutrophils 76.3 % (42.2-75.2); Absolute Monocytes 0.2 10^3/uL (0.1-0.6); Hematocrit 33.6 % (37.0-47.0); Hemoglobin 11.3 g/dL (12.0-16.0); Mean Corp Hgb Conc. 33.6 g/dL (33.0-37.0); Mean Corpuscular Hgb 27.2 pg (27.0-31.0); Mean Corpuscular Volume 80.8 fL (81.0-99.0); Mean Platelet Volume 9.4 fL (7.4-10.4); Nucleated Red Blood Cells % 0 %; Platelet Count 313 10^3/uL (130-400); Red Blood Cell Count 4.16 10^6/uL (4.20-5.40); White Blood Cell Count 5.3 10^3/uL (4.8-10.8)
--- NOTE | 2024-08-02 07:54 | ED.GENMED ---
History of Present Illness
General
Chief Complaint: Abdominal Pain
Source: patient
Exam Limitations: none
Time Seen by Provider: 08/02/24 07:08
Nursing documentation reviewed up to this point in time: agreed with
History of Present Illness
History of Present Illness:
29 y/o F with h/o migraines
does not see neurologist
uses rizatriptan when she has migraines
this headache started gradually yesterdady and she took tylenol and when it was not relieved she tried a dose of rizatriptan. pt vomited about 7 times overnight and feels nauseated.
her headache is still present; both L periorbital region and posterior head. she has no fever, chills, congestion, sob, neck pain, vision changes, numbness/tingling/weakness in arms or legs, trouble with balance
this feels slimiar to previous headaches but usually she doesn' thave vomiting.
pt was here on 07/29 for headache; received compazine/benadryl/toradol with resolution
she says she was good for afew days until yesterday
she had no head injury
Past History
Past History
ED Past Medical History: Other (migraines)
Phy Exam
Physical Exam
Physical Exam:
GENERAL: Alert , in no apparent distress
HEAD: NCAT
EYE: pupils equal and reactive, no nystagmus, minimal photophobia
NECK: Supple,full rom, nontender
ENT: o/p clr, mmm.
CARDIAC: Regular rate and rhythm . no edema
LUNGS: Clear breath sounds bilaterally, no acute respiratory distress, no wheezes/rales/rhonchi
ABDOMEN: Soft, without focal tenderness, no r/g, no cvat
NEUROLOGICAL: Alert and orientedx 4, cn intact, no facial asymmetry, 5/5 strength in UE/LE, sensation intact, romberg neg, ambulates without assistance, neg pronator drift
SKIN: Warm and dry, skin intact.
MUSCULOSKELETAL: No edema, well perfused.
PSYCH: Normal and appropriate interaction.
Course
Orders/Labs/Results
Orders:
Orders
08/02/24 07:23
0.9% Sodium Chloride 1000 ml [Nss] 1,000 ml IV BOLUS
Diphenhydramine [Benadryl] 25 mg IV NOW STA
Ketorolac [Toradol] 15 mg IV NOW STA
Prochlorperazine [Compazine] 10 mg IV NOW STA
Test Result ONCE
08/02/24 07:28
Basic Metabolic Panel Urgent
Complete Blood Count/With Diff Urgent
08/02/24 08:23
Comprehensive Metabolic Panel Urgent
HCG, Serum Qualitative Screen Urgent
Lipase Urgent
08/02/24 09:47
Dexamethasone Sod Phosphate [Decadron] 10 mg IV NOW STA
Abnormal Lab Results
08/02/24 08/02/24
07:28 08:23
RBC 4.16 L 10^6/uL
(4.20-5.40)
Hgb 11.3 L g/dL
(12.0-16.0)
Hct 33.6 L %
(37.0-47.0)
MCV 80.8 L fL
(81.0-99.0)
RDW 15.0 H %
(11.5-14.5)
Absolute Lymphs (auto) 1.0 L 10^3/uL
(1.2-3.4)
Neutrophils % 76.3 H %
(42.2-75.2)
Lymphocytes % 18.5 L %
(20.5-51.1)
Chloride 108 H mmol/L 109 H mmol/L
(98-107) (98-107)
Creatinine 0.4 L mg/dL 0.5 L mg/dL
(0.6-1.0) (0.6-1.0)
Glucose 109 H mg/dl 104 H mg/dl
(70-99) (70-99)
08/02/24 07:28
08/02/24 08:23
Vital Signs
Initial and Last Documented VS:
Initial Vital Signs
Temp Pulse Resp BP Pulse Ox
97.5 F 83 22 136/89 99
08/02/24 06:35 08/02/24 06:35 08/02/24 06:35 08/02/24 06:35 08/02/24 06:35
Last Documented Vital Signs
Temp Pulse Resp BP Pulse Ox
97.5 F 88 16 118/83 99
08/02/24 06:35 08/02/24 08:25 08/02/24 08:25 08/02/24 08:25 08/02/24 08:25
MDM/Problems Addressed
Differential Diagnosis Includes:
migraine, tension headache
MDM/Problems Addressed:
29 y/o F
with ho migraines
followed by primary care
here with recurrence of migraine yesterday gradual onset, no red flag symptoms
had a heaache a few days ago and was int he ER and had resolution with IV migraine cocktail; had painfree few days and then the pain return now this time with vomiting
photophia mild, nontoxic, normal neck exam, normal neuro exam
vitals stable
complete resolution with iv compazine, benadryl, toradol
will give dose of decadron to help with rebound
dc home
outaptient neuro recommended
*Critical Care Note
Total Time (30-74mins, 75-104mins- exclusive of procedures): Not Applicable
ED Attending Note
-
Portions of this chart may have been created with voice recognition software.� Occasional wrong word or��sound alike� substitutions may have occurred due to the inherent limitations of voice recognition software.
Discharge Plan
Departure
Patient Disposition: Home (Routine Discharge)
Date of Disposition: 08/02/24
Time of Disposition: 09:50
Patient with high blood pressure during this ER visit?: No
Covid-19: Not Applicable
Discharge Problem:
Migraine
Instructions: Migraine in adults
Prescriptions:
New
prochlorperazine maleate [Compazine] 10 mg tablet
10 mg PO BID PRN (Reason: nausea and vomiting) Qty: 4 0RF
No Action
amoxicillin-pot clavulanate 875-125 mg tablet
1 tab PO BID Qty: 20 0RF
ondansetron 4 mg tablet,disintegrating
4 mg PO TID PRN (Reason: nausea and vomiting) 5 Days Qty: 15 0RF
Referrals:
Naga Finley MD [Family Provider] - Follow up in 2-3 days
Alberto Sepulveda MD [Active] - Follow up in 1 week
Activity Restrictions/Additional Instructions:
WE GAVE YOU MIGRAINE MEDICATION TO HELP YOUR HEADACHE
YOU CAN USE TYLENOL OR MOTRIN IF YOUR HEADACHE RECURS.
DRINK FLUIDS, EAT A BLAND DIET
IF YOU HAVE VOMTING, YOU CAN TRY A DOSE OF COMPAZINE NEEDED.
RETURN FOR: SEVERE HEADACHE, CONTINUED VOMITING, ANY NEUROLOGIC SYMPTOMS OR ANY CONCERNS
IT PROBABLY WOULD BE A GOOD IDEA TO SEE A NEUROLOGIST AN OUTPATIENT
FOLLOW UP WITH YOUR DOCTOR WELL
Interventions
Interventions:
*Risk Screen - Suicide Last Done: 08/02/24 06:35
*General Assessment Last Done: 08/02/24 06:35
*Neglect/Abuse Screening Last Done: 08/02/24 06:35
ED- Fall Risk Assessment Last Done: 08/02/24 07:09
*ED COVID-19 Vaccine History Last Done: 08/02/24 06:35
QE-Gjeuwa-Bmsipprcyl Assessment Last Done: 08/02/24 07:09
Discharge Date and Time
Print Language: NIGERIAN
[2024-08-02 07:59] LABS: Blood Urea Nitrogen 8 mg/dl (7-17); Calcium 9.2 mg/dl (8.4-10.2); Carbon Dioxide 22 mmol/L (22-30); Chloride 108 mmol/L (98-107); Glucose 109 mg/dl (70-99); Sodium 145 mmol/L (135-145); eGFR > 60.00
[2024-08-02 08:25] VITALS: BP 118/83
[2024-08-02 08:44] LABS: HCG, Serum Qualitative Screen Negative
[2024-08-02 08:48] LABS: ALT (SGPT) 29 U/L (0-35); AST (SGOT) 26 U/L (14-36); Albumin 4.4 g/dl (3.5-5.0); Alkaline Phosphatase 57 U/L (38-126); Blood Urea Nitrogen 8 mg/dl (7-17); Calcium 8.8 mg/dl (8.4-10.2); Carbon Dioxide 24 mmol/L (22-30); Chloride 109 mmol/L (98-107); Glucose 104 mg/dl (70-99); Lipase 79 U/L (23-300); Potassium 3.8 mmol/L (3.5-5.1); Sodium 145 mmol/L (135-145); Total Bilirubin 0.2 mg/dl (0.2-1.3); Total Protein 7.1 g/dl (6.3-8.2); eGFR > 60.00
[2024-08-02] MEDS: DECADRON 10 MG IV (09:51)
[2024-08-02 10:00] VITALS: BP 121/78
== END 2024-08-02 10:37 | disposition home or self-care (01) ==
LOC: EMR 06:32
PROVIDERS: Physician Assistant; EMERGENCY PHYSICIAN Emergency Medicine; FAMILY PHYSICIAN Internal Medicine
DX: G43.909 Migraine, unspecified, not intractable, without status migrainosus (principal); Z79.899 Other long term (current) drug therapy
CPT/HCPCS: 99283; 96374; 96375; 96361; 80048; 80053; 83690; 84703; 85025

== ENCOUNTER 2024-08-11 21:12 | Emergency (ER) | payer SELFPAY ==
[2024-08-11 21:17] VITALS: BP 156/94
[2024-08-11 21:54] LABS: Urine Albumin Negative (Neg - Trace); Urine Bilirubin Negative (Negative); Urine Character Very Cloudy (Clear); Urine Color Yellow; Urine Glucose Negative (Negative); Urine Ketone Negative (Negative); Urine Leukocyte Trace (Negative); Urine Nitrite Negative (Negative); Urine Occult Blood Negative (Negative); Urine Urobilinogen Negative (Neg - 1+)
[2024-08-11 21:57] LABS: % Basophils 0.5 % (0-2); % Eosinophils 2.1 % (0-6); % Immature Granulocytes 0.4 % (0-0.5); % Lymphocytes 29.8 % (20.5-51.1); % Monocytes 8.7 % (1.7-9.3); % Neutrophils 58.5 % (42.2-75.2); Absolute Eosinophils 0.2 10^3/uL (0-0.7); Absolute Lymphocytes 2.3 10^3/uL (1.2-3.4); Absolute Monocytes 0.7 10^3/uL (0.1-0.6); Absolute Neutrophils 4.4 10^3/uL (1.4-6.5); Hematocrit 36.9 % (37.0-47.0); Hemoglobin 12.2 g/dL (12.0-16.0); Mean Corp Hgb Conc. 33.1 g/dL (33.0-37.0); Mean Corpuscular Hgb 27.9 pg (27.0-31.0); Mean Corpuscular Volume 84.4 fL (81.0-99.0); Mean Platelet Volume 9.3 fL (7.4-10.4); Nucleated Red Blood Cells % 0 %; Platelet Count 309 10^3/uL (130-400); Red Blood Cell Count 4.37 10^6/uL (4.20-5.40); Red Cell Dist. Width 13.8 % (11.5-14.5); White Blood Cell Count 7.6 10^3/uL (4.8-10.8)
[2024-08-11 22:00] VITALS: BP 125/76
[2024-08-11 22:07] LABS: HCG, Serum Qualitative Screen Negative
[2024-08-11 22:08] LABS: ALT (SGPT) 27 U/L (0-35); AST (SGOT) 25 U/L (14-36); Albumin 4.5 g/dl (3.5-5.0); Alkaline Phosphatase 60 U/L (38-126); Blood Urea Nitrogen 12 mg/dl (7-17); Calcium 9.7 mg/dl (8.4-10.2); Carbon Dioxide 27 mmol/L (22-30); Chloride 103 mmol/L (98-107); Glucose 84 mg/dl (70-99); Potassium 4.1 mmol/L (3.5-5.1); Sodium 141 mmol/L (135-145); Total Bilirubin 0.2 mg/dl (0.2-1.3); Total Protein 7.3 g/dl (6.3-8.2); eGFR > 60.00
[2024-08-11 22:17] LABS: Urine Amorphous Seen; Urine Squamous Cell >30 /LPF (Few)
[2024-08-11 22:18] LABS: Urine Bacteria Moderate (Negative); Urine Red Blood Cell 0-2 /HPF (0-2)
[2024-08-11 22:27] VITALS: BMI 29.5
--- NOTE | 2024-08-11 22:50 | ED.GENMED ---
History of Present Illness
<Gissel Downey PA-C - Last Filed: 08/12/24 01:58>
General
Chief Complaint: Abdominal Symptoms
Source: patient
Exam Limitations: none
Time Seen by Provider: 08/11/24 22:25
Nursing documentation reviewed up to this point in time: agreed with
History of Present Illness
History of Present Illness:
Patient is a 29 year old female presenting to the emergency department for evaluation of right pelvic discomfort. Patient states symptoms started last night middle the night waking her from sleep. She endorses a constant pain in her right pelvic
region with some radiation around to the right back. Pain does intermittently get more severe at times. She endorses associated nausea, although no vomiting. She has had a decreased appetite today. Patient did note a temp at home of 38 Celsius.
Patient denies any associated urinary symptoms. No abnormal vaginal discharge or bleeding.
Patient does have a history of an appendectomy 4 months ago.
Past History
<Gissel Downey PA-C - Last Filed: 08/12/24 01:58>
Past History
ED Past Medical History: Other (migraines)
Review of Systems
<Gissel Downey PA-C - Last Filed: 08/12/24 01:58>
Review of Systems
Allergies reviewed?: Yes
All Other Systems: ROS reviewed and negative except as documented in HPI and ROS
Phy Exam
<Gissel Downey PA-C - Last Filed: 08/12/24 01:58>
Physical Exam
Physical Exam:
Vitals: Patient's vital signs are stable. Afebrile
General: Patient is well appearing, no acute distress
Skin: Warm and dry, no rashes or lesions
Head: Normocephalic, atraumatic
Eyes: Sclera nonicteric. EOMs intact. No nystagmus.
Throat: Protecting airway
Neck: Normal ROM, no cervical spine tenderness, no meningismus
Cardiac: Regular rate and rhythm, no murmurs.
Pulm: Normal respiratory effort, no wheezes, rales, rhonchi heard on exam.
Abdomen: Abdomen soft. Mild abdominal tenderness in right lower abdomen/pelvic region. No rebound tenderness or guarding. Well-healing laparoscopic scars from prior appendectomy and section scar.
Extremities: No evidence of cyanosis or edema
Neuro: AAOx3. CN II-XII intact. No focal neurologic deficits.
Psychiatric: Normal affect.
Course
<Gissel Downey PA-C - Last Filed: 08/12/24 01:58>
Orders/Labs/Results
Orders:
Orders
08/11/24 21:20
Test Result ONCE
08/11/24 21:36
Complete Blood Count/With Diff Urgent
Comprehensive Metabolic Panel Urgent
HCG, Serum Qualitative Screen Urgent
Urinalysis Reflex To Culture Urgent
Date Specimen was Collected: 08/11/24
Time Specimen was Collected: 21:20
Urine Microscopic Reflex Cult Urgent
Urine Culture Urgent
ELE Source: U
Specimen Description:
Date Specimen was Collected: 08/11/24
Time Specimen was Collected: 21:20
08/11/24 22:53
0.9% Sodium Chloride 1000 ml [Nss] 1,000 ml IV BOLUS
Ketorolac [Toradol] 15 mg IV NOW STA
Ondansetron Injectable [Zofran] 4 mg IV NOW STA
US Kidneys [US Renal Only W/O Bladder] Urgent
Comment:
Reason For Exam: R lower abdominal/flank pain
US Pelvis Only (non-obstetric) Urgent
Comment:
Reason For Exam: R pelvic pain radiating to back, +nausea
Abnormal Lab Results
08/11/24
21:36
Hct 36.9 L %
(37.0-47.0)
Absolute Monos (auto) 0.7 H 10^3/uL
(0.1-0.6)
Leukocyte Esterase Rfl Trace A
(Negative)
Urine Bacteria (Reflex) Moderate A
(Negative)
08/11/24 21:36
08/11/24 21:36
Vital Signs
Initial and Last Documented VS:
Initial Vital Signs
Temp Pulse Resp BP Pulse Ox
97.7 F 76 18 156/94 98
08/11/24 21:17 08/11/24 21:17 08/11/24 21:17 08/11/24 21:17 08/11/24 21:17
Last Documented Vital Signs
Temp Pulse Resp BP Pulse Ox
97.7 F 78 16 125/76 98
08/11/24 21:17 08/11/24 22:00 08/11/24 22:00 08/11/24 22:00 08/11/24 22:00
<Antoine Herrera, - Last Filed: 08/12/24 00:55>
Orders/Labs/Results
Orders:
Orders
08/11/24 21:20
Test Result ONCE
08/11/24 21:36
Complete Blood Count/With Diff Urgent
Comprehensive Metabolic Panel Urgent
HCG, Serum Qualitative Screen Urgent
Urinalysis Reflex To Culture Urgent
Date Specimen was Collected: 08/11/24
Time Specimen was Collected: 21:20
Urine Microscopic Reflex Cult Urgent
Urine Culture Urgent
ELE Source: U
Specimen Description:
Date Specimen was Collected: 08/11/24
Time Specimen was Collected: 21:20
08/11/24 22:53
0.9% Sodium Chloride 1000 ml [Nss] 1,000 ml IV BOLUS
Ketorolac [Toradol] 15 mg IV NOW STA
Ondansetron Injectable [Zofran] 4 mg IV NOW STA
US Kidneys [US Renal Only W/O Bladder] Urgent
Comment:
Reason For Exam: R lower abdominal/flank pain
US Pelvis Only (non-obstetric) Urgent
Comment:
Reason For Exam: R pelvic pain radiating to back, +nausea
Abnormal Lab Results
08/11/24
21:36
Hct 36.9 L %
(37.0-47.0)
Absolute Monos (auto) 0.7 H 10^3/uL
(0.1-0.6)
Leukocyte Esterase Rfl Trace A
(Negative)
Urine Bacteria (Reflex) Moderate A
(Negative)
08/11/24 21:36
08/11/24 21:36
Vital Signs
Initial and Last Documented VS:
Initial Vital Signs
Temp Pulse Resp BP Pulse Ox
97.7 F 76 18 156/94 98
08/11/24 21:17 08/11/24 21:17 08/11/24 21:17 08/11/24 21:17 08/11/24 21:17
Last Documented Vital Signs
Temp Pulse Resp BP Pulse Ox
97.7 F 78 16 125/76 98
08/11/24 21:17 08/11/24 22:00 08/11/24 22:00 08/11/24 22:00 08/11/24 22:00
<Gissel Downey PA-C - Last Filed: 08/12/24 01:58>
MDM/Problems Addressed
MDM/Problems Addressed:
29-year-old female with abdominal pain for two days with mild associated nausea. Low grade temp at home, although patient afebrile here in emergency department. Vitals stable. Patient well appearing in no apparent distress. Patient conversational
and nontoxic. Exam as above. Labs were initiated in triage without any clinically significant abnormalities. HCG negative. Urinalysis shows no evidence of infection of red blood cells. Both a pelvic US and kidney US were obtained without acute
abnormalities. IUD found to be in good position. Patient without history of STIs/STDs and currently in monogamous relationship�not concern for sexually transmitted infections. Patient was given Toradol, Zofran, and fluids in emergency department
with improvement in symptoms. She does still have mild tenderness to palpation although is feeling better. Unknown exact etiology of abdominal/pelvic pain although do not suspect ovarian torsion or other acute intra-abdominal infection given
patient is afebrile with no leukocytosis. Did consider CT with patient although shared decision making utilized and will hold off for now. Patient does have history of appendectomy. Patient will be discharged with strict return precautions
including fevers, persistent/worsening abdominal pain, anorexia, nausea/vomiting. Patient comfortable plan. Patient seen with attending physician
Chronic conditions affecting care:
N/A
Acute Exacerbation and/or Progression of Chronic Illness:
N/A
<Antoine Herrera DO - Last Filed: 08/12/24 00:55>
MDM/Problems Addressed
Differential Diagnosis Includes:
Colitis, ovarian torsion, ovarian cyst, hemorrhagic cyst, PID, UTI, constipation
MDM/Problems Addressed:
Abdominal pain
<Gissel Downey PA-C - Last Filed: 08/12/24 01:58>
*Radiology
Radiology exam reviewed: preliminary read by ED provider and radiology read reviewed
*EKG
Interpreted by ED Provider?: NA
*Manager Business Continuity Interpretation
Rate: Manager Business Continuity- N/A
<DO Leondias White Last Filed: 08/12/24 00:55>
*Pulse Oximetry
Patient hypoxic: no
*Critical Care Note
Total Time (30-74mins, 75-104mins- exclusive of procedures): Not Applicable
Data Reviewed
Source: patient and significant other
Further Testing Considered But Not Given:
Consider CT but abdomen benign and white count normal
ED Attending Note
<Gissel Downey PA-C - Last Filed: 08/12/24 01:58>
-
Portions of this chart may have been created with voice recognition software.� Occasional wrong word or��sound alike� substitutions may have occurred due to the inherent limitations of voice recognition software.
<Antoine Herrera DO - Last Filed: 08/12/24 00:55>
ED Attending Note
Patient seen and examined by attending physician: Yes
I performed the substantive portion of visit, reviewed & personally made and approve the management plan that is documented in note by myself or MADDY.: Yes
ED Attending Note:
29-year-old female who presents with right lower quadrant abdominal pain. History of appendectomy. Patient states that on my exam she does feel better but did have some nausea. No diarrhea. No constipation. No melena. No hematochezia. No
abnormal vaginal bleeding. Exam: Abdomen soft, mild tenderness to the right pelvic region. No rebound. No guarding. Assessment and plan: Appears well. Ultrasound, urine, white count normal. Feels better. Do not suspect torsion. In addition,
do not suspect major infectious processes her workup is normal she has no fever. I do think it is reasonable to forego CT imaging at this time. However. Strict return warnings were reviewed with the patient she does agree to return over the next
12 to 24 hours symptoms persist or worsen or there are any additional symptoms. At that time CT may be warranted.
Discharge Plan
Departure
Patient Disposition: Home (Routine Discharge)
Date of Disposition: 08/12/24
Time of Disposition: 00:48
Patient with high blood pressure during this ER visit?: No
Condition: Good
Covid-19: Not Applicable
Discharge Problem:
Abdominal pain
Instructions: Pelvic Pain (DC), Abdominal Pain
Prescriptions:
New
ondansetron 4 mg tablet,disintegrating
4 mg PO Q8H PRN (Reason: nausea and vomiting) Qty: 10 0RF
No Action
amoxicillin-pot clavulanate 875-125 mg tablet
1 tab PO BID Qty: 20 0RF
ondansetron 4 mg tablet,disintegrating
4 mg PO TID PRN (Reason: nausea and vomiting) 5 Days Qty: 15 0RF
prochlorperazine maleate [Compazine] 10 mg tablet
10 mg PO BID PRN (Reason: nausea and vomiting) Qty: 4 0RF
Referrals:
Naga Finley MD [Family Provider] - Follow up in 5-7 days
Activity Restrictions/Additional Instructions:
RETURN TO THE EMERGENCY DEPARTMENT WITH ANY FEVERS, CHILLS, PERSISTENT/WORSENING ABDOMINAL PAIN, INTRACTABLE NAUSEA/VOMITING, LACK OF APPETITE, WORSENING IN CURRENT SYMPTOMS, OR ANY OTHER CONCERNS
-You can take Motrin and/or Tylenol at home as needed for discomfort. A prescription for Zofran has been sent to your pharmacy. You can take this up to every 8 hours as needed for persistent nausea/vomiting.
-Stay well-hydrated.
-Follow-up with your primary care provider for further evaluation/management to ensure that symptoms are improved
Monitor your symptoms closely return to the emergency department any acute worsening/new symptoms
Interventions
Interventions:
*Risk Screen - Suicide Last Done: 08/11/24 21:17
*General Assessment Last Done: 08/11/24 21:17
*Neglect/Abuse Screening Last Done: 08/11/24 22:27
ED- Fall Risk Assessment Last Done: 08/12/24 00:58
*ED COVID-19 Vaccine History Last Done: 08/11/24 21:17
*Nursing Disposition Last Done: 08/12/24 00:58
EY-Smueyh-Glwdchxowx Assessment Last Done: 08/11/24 22:27
Discharge Date and Time
Discharge Date/Time: 08/12/24 00:59
Print Language: YI
[2024-08-12] MEDS: NSS 1000 IV (00:10)
[2024-08-12] MEDS: ZOFRAN 4 MG IV (00:11)
[2024-08-12] MEDS: TORADOL 15 MG IV (00:14)
== END 2024-08-12 00:59 | disposition home or self-care (01) ==
LOC: EMR 21:12
PROVIDERS: EMERGENCY PHYSICIAN Emergency Medicine; FAMILY PHYSICIAN Internal Medicine
DX: R10.31 Right lower quadrant pain (principal); R11.0 Nausea; Z90.49 Acquired absence of other specified parts of digestive tract; Z97.5 Presence of (intrauterine) contraceptive device
CPT/HCPCS: 99284; 96374; 96375; 96361; 76775; 76856; 80053; 81003; 81015; 84703; 85025; 87086

== ENCOUNTER 2024-12-11 03:22 | Emergency (ER) | payer OTHER, SELFPAY ==
[2024-12-11 03:23] VITALS: BP 122/85
[2024-12-11 04:11] VITALS: BP 120/67; BMI 27.3
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
[2024-12-11] MEDS: BENADRYL 25 MG IV (06:56)
[2024-12-11] MEDS: NSS 500 IV (06:57)
[2024-12-11] MEDS: REGLAN 10 MG IV (06:57)
[2024-12-11 07:17] LABS: Blood Urea Nitrogen 11 mg/dl (7-17); Calcium 9.3 mg/dl (8.4-10.2); Carbon Dioxide 25 mmol/L (22-30); Chloride 106 mmol/L (98-107); Estimated Creatinine Clearance > 125 ml/min; Glucose 96 mg/dl (70-99); Potassium 3.9 mmol/L (3.5-5.1); Sodium 140 mmol/L (135-145); eGFR > 60.00
[2024-12-11 07:19] LABS: % Basophils 0.6 % (0-2); % Immature Granulocytes 0.4 % (0-0.5); % Lymphocytes 49.8 % (20.5-51.1); % Monocytes 7.4 % (1.7-9.3); % Neutrophils 37.8 % (42.2-75.2); Absolute Eosinophils 0.2 10^3/uL (0-0.7); Absolute Lymphocytes 2.6 10^3/uL (1.2-3.4); Absolute Monocytes 0.4 10^3/uL (0.1-0.6); Hematocrit 32.9 % (37.0-47.0); Hemoglobin 10.8 g/dL (12.0-16.0); Mean Corp Hgb Conc. 32.8 g/dL (33.0-37.0); Mean Corpuscular Hgb 26.4 pg (27.0-31.0); Mean Corpuscular Volume 80.4 fL (81.0-99.0); Mean Platelet Volume 9.3 fL (7.4-10.4); Nucleated Red Blood Cells % 0 %; Platelet Count 286 10^3/uL (130-400); Red Blood Cell Count 4.09 10^6/uL (4.20-5.40); Red Cell Dist. Width 13.7 % (11.5-14.5); White Blood Cell Count 5.2 10^3/uL (4.8-10.8)
[2024-12-11 07:29] LABS: Troponin I < 0.012 ng/ml
[2024-12-11 07:45] VITALS: BP 112/69
[2024-12-11 08:00] VITALS: BP 117/70
[2024-12-11 09:00] VITALS: BP 103/70
== END 2024-12-11 10:47 | disposition home or self-care (01) ==
LOC: EMR 03:22
PROVIDERS: EMERGENCY PHYSICIAN Emergency Medicine
DX: G43.909 Migraine, unspecified, not intractable, without status migrainosus (principal)
CPT/HCPCS: 99284; 96374; 96375; 96361; 80048; 84484; 85025; 93005

== ENCOUNTER 2025-04-15 18:56 | Emergency (ER) | payer OTHER, SELFPAY ==
[2025-04-15 18:59] VITALS: BP 134/92
[2025-04-15 19:19] LABS: % Basophils 0.5 % (0-2); % Eosinophils 3.7 % (0-6); % Immature Granulocytes 0.3 % (0-0.5); % Lymphocytes 29.6 % (20.5-51.1); % Neutrophils 58.9 % (42.2-75.2); Absolute Eosinophils 0.3 10^3/uL (0-0.7); Absolute Lymphocytes 2.2 10^3/uL (1.2-3.4); Absolute Monocytes 0.5 10^3/uL (0.1-0.6); Absolute Neutrophils 4.3 10^3/uL (1.4-6.5); Hematocrit 32.8 % (37.0-47.0); Hemoglobin 10.7 g/dL (12.0-16.0); Mean Corp Hgb Conc. 32.6 g/dL (33.0-37.0); Mean Corpuscular Hgb 26.5 pg (27.0-31.0); Mean Corpuscular Volume 81.2 fL (81.0-99.0); Mean Platelet Volume 9.3 fL (7.4-10.4); Nucleated Red Blood Cells % 0 %; Platelet Count 291 10^3/uL (130-400); Red Blood Cell Count 4.04 10^6/uL (4.20-5.40); Red Cell Dist. Width 15.7 % (11.5-14.5); White Blood Cell Count 7.3 10^3/uL (4.8-10.8)
[2025-04-15 19:20] LABS: Urine Albumin Negative (Neg - Trace); Urine Bilirubin Negative (Negative); Urine Character Clear (Clear); Urine Color Yellow; Urine Glucose Negative (Negative); Urine Ketone Negative (Negative); Urine Leukocyte 1+ (Negative); Urine Nitrite Negative (Negative); Urine Occult Blood 4+ (Negative); Urine Specific Gravity 1.015 (<1.030); Urine Urobilinogen Negative (Neg - 1+)
[2025-04-15 19:21] LABS: HCG, Urine Qualitative Screen Negative
[2025-04-15 19:33] LABS: ALT (SGPT) 16 U/L (0-35); AST (SGOT) 20 U/L (14-36); Albumin 4.4 g/dl (3.5-5.0); Alkaline Phosphatase 63 U/L (38-126); Blood Urea Nitrogen 9 mg/dl (7-17); Calcium 9.8 mg/dl (8.4-10.2); Carbon Dioxide 28 mmol/L (22-30); Chloride 108 mmol/L (98-107); Glucose 84 mg/dl (70-99); Potassium 4.1 mmol/L (3.5-5.1); Sodium 143 mmol/L (135-145); Total Bilirubin 0.2 mg/dl (0.2-1.3); Total Protein 7.6 g/dl (6.3-8.2); eGFR > 60.00
[2025-04-15 19:58] LABS: Urine Red Blood Cell 0-2 /HPF (0-2)
[2025-04-15 20:12] VITALS: BP 119/77
[2025-04-15 20:13] VITALS: BMI 28.7
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
[2025-04-15] MEDS: TORADOL 30 MG IV (20:46)
== END 2025-04-15 22:32 | disposition home or self-care (01) ==
LOC: EMR 18:56
PROVIDERS: Student in an Organized Health Care Education/Training Program; EMERGENCY PHYSICIAN Emergency Medicine; FAMILY PHYSICIAN Internal Medicine
DX: R10.31 Right lower quadrant pain (principal)
CPT/HCPCS: 99285; 96374; 74176; 80053; 81003; 81015; 81025; 85025; 87077; 87086; 87147

== ENCOUNTER 2025-08-09 01:07 | Emergency (ER) | payer OTHER, SELFPAY ==
[2025-08-09 01:08] VITALS: BP 120/84
--- NOTE | 2025-08-09 01:22 | ED.GENMED ---
History of Present Illness
<Olena Grimes PA-C - Last Filed: 08/09/25 02:12>
General
Chief Complaint: Skin Problem
Source: patient
Exam Limitations: none
Time Seen by Provider: 08/09/25 01:12
Nursing documentation reviewed up to this point in time: agreed with
History of Present Illness
History of Present Illness:
30-year-old female with a past medical history of GERD on Protonix presents to the ER today with concerns of a red painful region to her right medial knee. She reports that this started a few days ago. She reports that it started as a small red
tiffany and has been progressively getting bigger. She has radiation of pain up the thigh. She denies any swollen lymph nodes in the groin. She reports that she did have a low-grade fever at home of 100 which was associated with a sore throat.
Patient is requesting to be tested for strep. She reports that her children were recently sick with strep throat and similar symptoms. She denies cough, shortness of breath, chest pain. She denies any recent long distance travel. She denies any
asymmetric swelling. She denies any recent bug bites or trauma to the area.
Past History
<Olena Grimes PA-C - Last Filed: 08/09/25 02:12>
Past History
ED Past Medical History: GERD and Other (migraines)
ED Past Surgical History: Appendectomy
Social History
Tobacco: Non-smoker
Alcohol: Occasional
Drug: None
Personal:
Living: with family
Review of Systems
<Olena Grimes PA-C - Last Filed: 08/09/25 02:12>
Review of Systems
All Other Systems: ROS reviewed and negative except as documented in HPI and ROS
Phy Exam
<Olena Grimes PA-C - Last Filed: 08/09/25 02:12>
Physical Exam
Physical Exam:
General: Patient is well appearing and in no acute distress; non-toxic
Skin: 2 cm area of fluctuance with surrounding erythema
Head: Normocephalic, atraumatic
Eyes: Sclera non-icteric. EOMs intact.
Cardiac: Regular rate and rhythm, no murmurs
Mouth/Throat: No intraoral lesions. Uvula midline. Bilateral tonsillar hypertrophy with erythema. No exudates.
Neck: No cervical lymphadenopathy
Peripheral Vascular: No lower extremity swelling or edema
Pulm: Normal respiratory effort, no wheezes, rales, rhonchi
Musculoskeletal: Full rom of right lower extremity, flexion and extension of the knee intact, sensation intact, normal gait
Neuro: CN II-XII intact, no focal neurologic deficits.
Psychiatric: Appropriate mood and affect.
Course
<Olena Grimes PA-C - Last Filed: 08/09/25 02:12>
Orders/Labs/Results
Orders:
Orders
08/09/25 01:31
Doxycycline [Vibramycin] 100 mg PO NOW STA
Ibuprofen [Motrin] 600 mg PO NOW STA
08/09/25 01:46
Rapid Strep Group A Urgent
ELE Source: Throat/Pharynx
Specimen Description:
Date Specimen was Collected: 08/09/25
Time Specimen was Collected: 01:45
Vital Signs
Initial and Last Documented VS:
Initial Vital Signs
Temp Pulse Resp BP Pulse Ox
98 F 82 20 120/84 97
08/09/25 01:08 08/09/25 01:08 08/09/25 01:08 08/09/25 01:08 08/09/25 01:08
Last Documented Vital Signs
Temp Pulse Resp BP Pulse Ox
98 F 82 20 120/84 97
08/09/25 01:08 08/09/25 01:08 08/09/25 01:08 08/09/25 01:08 08/09/25 01:23
<Tio Kirby DO - Last Filed: 08/09/25 01:43>
Orders/Labs/Results
Orders:
Orders
08/09/25 01:31
Doxycycline [Vibramycin] 100 mg PO NOW STA
Ibuprofen [Motrin] 600 mg PO NOW STA
08/09/25 01:46
Rapid Strep Group A Urgent
ELE Source: Throat/Pharynx
Specimen Description:
Date Specimen was Collected: 08/09/25
Time Specimen was Collected: 01:45
Vital Signs
Initial and Last Documented VS:
Initial Vital Signs
Temp Pulse Resp BP Pulse Ox
98 F 82 20 120/84 97
08/09/25 01:08 08/09/25 01:08 08/09/25 01:08 08/09/25 01:08 08/09/25 01:08
Last Documented Vital Signs
Temp Pulse Resp BP Pulse Ox
98 F 82 20 120/84 97
08/09/25 01:08 08/09/25 01:08 08/09/25 01:08 08/09/25 01:08 08/09/25 01:23
<Olena Grimes PA-C - Last Filed: 08/09/25 02:12>
MDM/Problems Addressed
Differential Diagnosis Includes:
ddx include folliculitis, abscess, cellulitis, viral pharyngitis, strep pharyngitis
MDM/Problems Addressed:
30-year-old female with a past medical history of GERD on Protonix presents to the ER today with concerns of a red painful region to her right medial knee. She reports that this started a few days ago. She reports that it started as a small red
tiffany and has been progressively getting bigger. On physical exam, she has 2 cm area of fluctuance with surrounding erythema consistent with a folliculitis. Will initiate doxycycline. She also has associated acute pharyngitis, testing negative for
rapid strep test. Discussed conservative care at home. Discussed follow-up with primary care provider. Patient stable for discharge.
Chronic conditions affecting care:
GERD, migraines
<Olena Grimes PA-C - Last Filed: 08/09/25 02:12>
*Pulse Oximetry
SaO2: 97
Oxygen Mode of Delivery: Room air
Patient hypoxic: no
*Critical Care Note
Total Time (30-74mins, 75-104mins- exclusive of procedures): Not Applicable
Data Reviewed
Review of Other/Old Records Reveals: Records (Reviewed ER physician documentation from 04/15/2025 patient seen for lower abdominal pain) and Discharge Summary (No discharge summaries in [facility] to review)
Source: patient and records
ED Attending Note
<Olena Grimes PA-C - Last Filed: 08/09/25 02:12>
-
Portions of this chart may have been created with voice recognition software.� Occasional wrong word or��sound alike� substitutions may have occurred due to the inherent limitations of voice recognition software.
<Tio Kirby DO - Last Filed: 08/09/25 01:43>
ED Attending Note
Patient seen and examined by attending physician: Yes
I performed the substantive portion of visit, reviewed & personally made and approve the management plan that is documented in note by myself or MADDY.: Yes
ED Attending Note:
I have seen and evaluated the patient with a [id number] encounter. I have spoken to the advance practicer provider and involved in the medical history, the physical exam, medical decision making.
Evaluation and management service: agree unless noted differently below.
Results interpretation: agree unless noted differently below.
Focused HPI: 30-year-old female presenting with tenderness to her right medial thigh. Patient denies any trauma or noticing any bug bites
Physical exam: What appears to be mild folliculitis to right distal medial thigh with mild surrounding erythema
Medical Decision Making: There does not appear to be enough fluctuance to warrant I&D. Will start doxycycline given the questionable bull's-eye appearance
Discharge Plan
Departure
Patient Disposition: Home (Routine Discharge)
Date of Disposition: 08/09/25
Time of Disposition: 02:09
Patient with high blood pressure during this ER visit?: Yes
Condition: Good
Discharge Problem:
Folliculitis, Acute pharyngitis
Instructions: Cellulitis (Skin Infection), Adult (DC), BLOOD PRESSURE, Skin Abscess
Prescriptions:
New
doxycycline hyclate 100 mg capsule
100 mg PO BID 7 Days Qty: 14 0RF
Referrals:
Naga Finley MD [Family Provider, Internal Medicine]
Activity Restrictions/Additional Instructions:
Your rapid strep test was negative.
Please follow up with your primary care provider.
Please apply warm compress to the red area 3-4 times a day for 10-20 min each time to help facilitate drainage.
Doxycycline has been sent to your pharmacy. Please take 1 tablet twice daily for 7 days.
PLEASE RETURN TO THE ER SHOULD YOU DEVELOP REDNESS SPREADING UP THE LEG, FEVERS, INABILITY AMBULATE, OR ANY OTHER SIGNS OR SYMPTOMS WORRISOME TO YOU.
Interventions
Interventions:
*Risk Screen - Suicide Last Done: 08/09/25 01:08
*General Assessment Last Done: 08/09/25 01:38
*Neglect/Abuse Screening Last Done: 08/09/25 01:08
*ED- Fall Risk Assessment Last Done: 08/09/25 01:24
*ED COVID-19 Vaccine History Last Done: 08/09/25 01:38
*ED Influenza Vaccine History Last Done: 08/09/25 01:38
ED-Skin Assessment Last Done: 08/09/25 01:20
Discharge Date and Time
Print Language: DANISH
[2025-08-09] MEDS: VIBRAMYCIN 100 MG PO (01:37)
[2025-08-09 01:38] VITALS: BMI 29.5
[2025-08-09] MEDS: MOTRIN 600 MG PO (01:38)
== END 2025-08-09 02:26 | disposition home or self-care (01) ==
LOC: EMR 01:07
PROVIDERS: EMERGENCY PHYSICIAN Student in an Organized Health Care Education/Training Program; FAMILY PHYSICIAN Internal Medicine
DX: L73.9 Follicular disorder, unspecified (principal); J02.9 Acute pharyngitis, unspecified; R03.0 Elevated blood-pressure reading, without diagnosis of hypertension; K21.9 Gastro-esophageal reflux disease without esophagitis
CPT/HCPCS: 99283; 87070; 87880

== ENCOUNTER 2025-09-28 15:43 | Emergency (ER) | payer OTHER, SELFPAY ==
[2025-09-28 15:48] VITALS: BP 134/86
[2025-09-28 16:28] LABS: Hematocrit 34.4 % (37.0-47.0); Hemoglobin 11.3 g/dL (12.0-16.0); Mean Corp Hgb Conc. 32.8 g/dL (33.0-37.0); Mean Corpuscular Volume 83.3 fL (81.0-99.0); Nucleated Red Blood Cells % 0 %; Platelet Count 328 10^3/uL (130-400); Red Cell Dist. Width 14.5 % (11.5-14.5)
[2025-09-28 16:36] LABS: HCG, Serum Qualitative Screen Negative
[2025-09-28 16:41] LABS: ALT (SGPT) 16 U/L (0-35); AST (SGOT) 20 U/L (14-36); Albumin 4.6 g/dl (3.5-5.0); Alkaline Phosphatase 63 U/L (38-126); Blood Urea Nitrogen 11 mg/dl (7-17); Calcium 9.5 mg/dl (8.4-10.2); Carbon Dioxide 29 mmol/L (22-30); Chloride 103 mmol/L (98-107); Glucose 83 mg/dl (70-99); Potassium 3.8 mmol/L (3.5-5.1); Sodium 138 mmol/L (135-145); Total Protein 7.8 g/dl (6.3-8.2); eGFR > 60.00
[2025-09-28 18:00] VITALS: BP 127/86
[2025-09-28] MEDS: NORCO 5/325 2 TABLET PO (19:39)
[2025-09-28 19:40] VITALS: BMI 28.7
--- NOTE | 2025-09-28 20:08 | ED.GENMED ---
History of Present Illness
General
Chief Complaint: Breast Problem
Source: patient
Time Seen by Provider: 09/28/25 19:07
History of Present Illness
History of Present Illness:
Note:
CHIEF COMPLAINT(S)
Fever and breast pain.
HISTORY OF PRESENT ILLNESS
The patient is a 30-year-old female presenting with a fever and breast pain. The symptoms started recently and were noted to occur simultaneously. The patient reported a fever peaking last night at approximately 100 degrees Fahrenheit following
ibuprofen administration earlier in the afternoon at around 2 p.m. The patient has no history of a similar breast infection and denies any recent trauma or injury to the breast area. The patient mentions having undergone breast augmentation several
years ago, but confirms no recent surgeries or interventions.
On examination, there is slight fullness at the 12 oclock position of the right breast compared to the left, with noted tenderness. The patient denies redness extending from the breast to the armpit or elsewhere and reports tenderness upon palpation
but no palpable masses in the axillary region. The patient noted a small, pimple-like lesion three days ago that has since resolved, with a similar past lesion on the left side. No current skin lesions are noted.
PAST MEDICAL AND SURGICAL HISTORY
The patient has a history of breast augmentation surgery several years ago.
PHYSICAL EXAM
General: Alert, no acute distress.
Skin: Warm, dry. No redness or warmth to the right breast region. Exam was chaperoned by female semiconductor technician. There is no palpable masses or fluctuance. Minor tenderness noted to the upper aspect of the right chest above the breast
Head: Normocephalic, atraumatic.
Neck: Supple, trachea midline.
Eye Ears, nose, mouth, and throat: Oral mucosa moist.
Cardiovascular: Normal peripheral perfusion, No edema.
Respiratory: Respirations are non-labored.
Gastrointestinal: Abdomen nondistended.
Back: Normal range of motion, Normal alignment.
Musculoskeletal: Normal range of motion, normal strength.
Neurological: Alert and oriented to person, place, time, and situation, No focal neurological deficit observed.
Psychiatric: Cooperative, appropriate mood & affect.
PROBLEM LIST
Acute Problems:
- Fever
- Right breast pain and tenderness
PLAN
An ultrasound of the right breast is planned to assess for any abscess or infection.
DIFFERENTIAL DIAGNOSIS
The Differential Diagnosis includes, in no particular order and is not limited to:
- Mastitis
- Breast abscess
- Cellulitis
- Fibrocystic breast changes
- Breast cyst
- Lipoma
- Inflammatory breast cancer
- Galactocele
- Breast hematoma
- Foreign body reaction (post-augmentation)
Disposition:
SUMMARY OF ENCOUNTER
The patient is a 30-year-old female with a history of breast augmentation presenting to the emergency department with fever and fullness in the right upper breast region. She reports fevers at home. A breast ultrasound was performed, which showed no
evidence of an abscess. On examination, there was no redness or warmth, and she was afebrile. Laboratory studies, including a CBC and CMP, were normal. Given these findings, she is considered stable for outpatient management.
PLAN
The patient is expected to follow up with a breast surgery aide if symptoms persist. Quick return precautions were reviewed with the patient.
INDEPENDENT REVIEW OF LABS AND INTERPRETATION OF TESTS
My independent review of CBC is normal.
My independent review of CMP is normal.
My independent review of the chest x-ray is that is normal
MEDICATION RECONCILIATION
No medications were prescribed or administered during this visit.
MEDICAL DECISION MAKING
-Complexity of Data Reviewed: Chronic conditions affecting care [breast augmentation]. Differential Diagnosis includes mastitis, breast abscess, cellulitis, fibrocystic breast changes, breast cyst, lipoma, inflammatory breast cancer, galactocele,
breast hematoma, and foreign body reaction (post-augmentation).
-Data:
Category 1:
The following tests were ordered and independently interpreted: Breast ultrasound, which showed no evidence of abscess; CBC and CMP, both normal.
-Risk:
Consideration of Admission/Observation: Escalation of care including admission/observation was considered given the complexity and risk of the patients presenting complaint, exam findings, and/or their underlying comorbidities. However, ultimately I
feel the patient is safe for outpatient management with close follow-up. Reasoning: Work-up reassuring, does not reveal any acute life/organ threatening processes, patients symptoms well controlled upon reevaluation, reexamination is reassuring,
vitals are stable, patient agreeable with discharge, reliable for follow-up.
DIAGNOSIS
Breast pain and tenderness, NOS: R22.2
Fever, unspecified: R50.9
Past History
Past History
ED Past Medical History: GERD and Other (migraines)
ED Past Surgical History: Appendectomy
Social History
Tobacco: Non-smoker
Alcohol: Occasional
Drug: None
Personal:
Living: with family
Sepsis
Sepsis Screening
Sepsis Assessment: Sepsis Ruled Out
Sepsis Screen
Sepsis Screen: Sepsis Ruled Out
Date: 09/28/25
Time: 22:29
Course
Orders/Labs/Results
Orders:
Orders
09/28/25 15:52
Test Result ONCE
09/28/25 16:13
Complete Blood Count/With Diff Urgent
Comprehensive Metabolic Panel Urgent
HCG, Serum Qualitative Screen Urgent
Comment: Notify provider if positive test present
Lactic Acid Q4H
Comment: ON ICE, CANCEL 2ND ORDER IF FIRST LACTIC ACID LEVEL <2
Blood Culture Q20M
ELE Source: Blood/Venous
Specimen Description:
Comment: Urgent from separate sites. If patient screens positive for possible sepsis
09/28/25 16:20
Blood Culture Q20M
ELE Source: Blood/Venous
Specimen Description:
Comment: Urgent from separate sites. If patient screens positive for possible sepsis
09/28/25 19:31
Hydrocodone 5/APAP 325 [[place] 5/325] 2 tablet PO NOW STA
US Breast Right Ltd Urgent
Comment:
Reason For Exam: fever, pain, r/o abscsess
09/28/25 21:51
CR Chest - 2 Views Urgent
Comment:
Reason For Exam: fever
Abnormal Lab Results
09/28/25
16:13
RBC 4.13 L 10^6/uL
(4.20-5.40)
Hgb 11.3 L g/dL
(12.0-16.0)
Hct 34.4 L %
(37.0-47.0)
MCHC 32.8 L g/dL
(33.0-37.0)
Total Bilirubin < 0.1 L mg/dl
(0.2-1.3)
09/28/25 16:13
09/28/25 16:13
Vital Signs
Initial and Last Documented VS:
Initial Vital Signs
Temp Pulse Resp BP Pulse Ox
97.7 F 63 16 134/86 94
09/28/25 15:48 09/28/25 15:48 09/28/25 15:48 09/28/25 15:48 09/28/25 15:48
Last Documented Vital Signs
Temp Pulse Resp BP Pulse Ox
98.2 F 77 16 117/68 98
09/28/25 20:30 09/28/25 21:00 09/28/25 21:00 09/28/25 21:00 09/28/25 21:00
*Pulse Oximetry
SaO2: 94
Oxygen Mode of Delivery: Room air
Patient hypoxic: no
*Critical Care Note
Total Time (30-74mins, 75-104mins- exclusive of procedures): Not Applicable
ED Attending Note
-
Portions of this chart may have been created with voice recognition software.� Occasional wrong word or��sound alike� substitutions may have occurred due to the inherent limitations of voice recognition software.
Discharge Plan
Departure
Patient Disposition: Home (Routine Discharge)
Date of Disposition: 09/28/25
Time of Disposition: 22:30
Patient with high blood pressure during this ER visit?: No
Discharge Problem:
Subjective fever, Fever, Breast pain
Prescriptions:
No Action
doxycycline hyclate 100 mg capsule
100 mg PO BID 7 Days Qty: 14 0RF
Referrals:
UNKNOWN - PT NOT,INTERVIEWE [Family Provider]
an got [Other]
Amanda Suh MD [Active, Surgical]
Activity Restrictions/Additional Instructions:
Breast pain
Please see breast surgery and follow-up in the next 3 to 5 days for follow-up and reevaluation. Return immediately for worsening symptoms, fevers greater than 101, shortness of breath or any other concerns.
Interventions
Interventions:
*Risk Screen - Suicide Last Done: 09/28/25 15:48
*General Assessment Last Done: 09/28/25 18:00
*Neglect/Abuse Screening Last Done: 09/28/25 15:48
*ED COVID-19 Vaccine History Last Done: 09/28/25 18:00
*ED Influenza Vaccine History Last Done: 09/28/25 18:00
[facility] Risk Assessment Tool Last Done: 09/28/25 18:00
ED-Skin Assessment Last Done: 09/28/25 18:00
Discharge Date and Time
Print Language: MACANESE
[2025-09-28 21:00] VITALS: BP 117/68
== END 2025-09-28 22:49 | disposition home or self-care (01) ==
LOC: EMR 15:43
PROVIDERS: Emergency Medicine; EMERGENCY PHYSICIAN Emergency Medicine
DX: R50.9 Fever, unspecified (principal); N64.4 Mastodynia
CPT/HCPCS: 99284; 71046; 76642; 80053; 83605; 84703; 85025; 87040